=== PATIENT | male | born 1995 | race Hispanic/Latino ===

== ENCOUNTER 2018-07-04 23:30 | Emergency (ER) | payer BC ==
[2018-07-04 23:54] VITALS: RESP 18
--- NOTE | 2018-07-05 00:48 | ED PDOC ---
HPI: Trauma/Fall - HPI Time Seen by Provider: 07/05/18 00:24 Chief Complaint (Nursing): Trauma Chief Complaint (Provider): fall History Per: Patient History/Exam Limitations: intoxication Injury Occurred (Timing): Hours Ago: (2) Additional Complaint(s): 23 y/o male presents for evaluation of fall 2 hours prior to arrival. Patient admits to being highly intoxicated earlier tonight; states he remembers going back to his friends apartment by himself and then his friends telling him he had blood around his mouth. Patient does not remember falling. Patient reports pain to right lower mouth/gum area. Denies headache, dizziness, extremity numbness/weakness, vision changes, neck pain. Past Medical History Reviewed: Historical Data, Nursing Documentation, Vital Signs Vital Signs: Last Vital Signs Temp 98.0 F 07/04/18 23:51 Pulse 91 H 07/04/18 23:51 Resp 18 07/04/18 23:51 BP 154/87 H 07/04/18 23:51 Pulse Ox 100 07/04/18 23:51 - Medical History PMH: No Chronic Diseases - Surgical History Surgical History: No Surg Hx - Family History Family History: States: No Known Family Hx - Living Arrangements Living Arrangements: With Family - Allergies Allergies/Adverse Reactions: Allergies Allergy/AdvReac Type Severity Reaction Status Date / Time No Known Allergies Allergy Verified 07/04/18 23:51 Review of Systems ROS Statement: Except As Marked, All Systems Reviewed And Found Negative ENT: Positive for: Mouth Pain Physical Exam - Reviewed Nursing Documentation Reviewed: Yes Vital Signs Reviewed: Yes - Physical Exam Appears: Positive for: Well, Non-toxic, No Acute Distress Head Exam: Positive for: ATRAUMATIC, NORMAL INSPECTION, NORMOCEPHALIC Eye Exam: Positive for: EOMI, PERRL ENT: Positive for: Other (linear crack/laceration extending from gingiva up to gum line between right lower lateral incisor and canine; canine slightly loose. No dental fractures, active bleeding noted. Airway patent. No TMJ tenderness. Opening/closing mouth without pain/difficulty) Cardiovascular/Chest: Positive for: Regular Rate, Rhythm Respiratory: Positive for: Normal Breath Sounds Gastrointestinal/Abdominal: Positive for: Normal Exam Back: Positive for: Normal Inspection Extremity: Positive for: Normal ROM Neurologic/Psych: Positive for: Alert, Oriented (x3) - ECG O2 Sat by Pulse Oximetry: 100 - Progress ED Course And Treament: -CT head -CT facial bones -Tylenol PO CT of the facial bones without contrast Clinical history: Pain, injury. Technique: Multiple axial CT images were obtained through the facial bones and paranasal sinuses utilizing 3 mm axial slices without administration of contrast. Coronal and sagittal reconstructions were also obtained. DLP 1736.7 Findings: The visualized paranasal sinuses are clear, other than a mucus retention cyst in the right maxillary sinus. The osteomeatal complexes are patent bilaterally. The nasal septum is midline. The visualized mastoid air cells are clear. There is an acute nondisplaced fracture of the right anterior mandible. There is an acute oblique fracture of the angle of the left mandible, with medial displacement noted. The temporomandibular joint appears to be intact. The superficial soft tissues are within normal limits. Impression: 1. Acute, medially displaced fracture of the angle of the left mandible. Temporomandibular joint is intact. 2. Acute nondisplaced fracture of the right anterior mandible. 3. Mucus retention cyst in the right maxillary sinus EXAM: CT Head without Intravenous Contrast. CLINICAL HISTORY: Etoh trauma, pt cannot recall what happened TECHNIQUE: Axial computed tomography images of the head/brain without intravenous contrast. 885.29 mGy-cm COMPARISON: None provided. FINDINGS: BRAIN No acute intraparenchymal hemorrhage. No mass lesion. No CT evidence for acute territorial infarct. No midline shift or extra-axial collections. VENTRICLES: No hydrocephalus. ORBITS: The orbits are unremarkable. SINUSES AND MASTOIDS: The paranasal sinuses and mastoid air cells are clear. BONES: No fracture. SOFT TISSUES: Unremarkable. IMPRESSION: No acute intracranial abnormality. -Oxycodone PO Case discussed with Dr. Reveles, OMFS at [facility], will require ED to ED transfer for consult Accepted by Dr. Calloway, ED attending at [facility]. Arrangements made for transfer Disposition - Clinical Impression Clinical Impression: Bilateral mandibular fracture - Disposition Disposition: Other Institution ([facility]) Disposition Time: 02:51 Condition: FAIR Forms: [employer] (Maltese)
[2018-07-05] MEDS ORDERED: oxyCODONE 5 mg Immediate Release Tab PO STA (02:27)
[2018-07-05 08:42] VITALS: BP 133/78; PULSE 81; TEMP 98.2; O2SAT 99
--- NOTE | 2018-07-05 09:19 | CT ---
Date of service: 07/05/2018 PROCEDURE: CT MAXILLOFACIAL BONES WITHOUT CONTRAST HISTORY: etoh, head injury COMPARISON: None available. TECHNIQUE: Contiguous axial CT images of the maxillofacial bones were obtained. Coronal and sagittal reformats were generated. Radiation dose: Total exam DLP = 1736.77 mGy-cm. This CT exam was performed using one or more of the following dose reduction techniques: Automated exposure control, adjustment of the mA and/or kV according to patient size, and/or use of iterative reconstruction technique. FINDINGS: NASAL BONES: Unremarkable. ORBITS: Unremarkable. PARANASAL SINUSES/ MASTOIDS: Right maxillary sinus retention cyst/polyp. MAXILLA: Unremarkable. MANDIBLE/ TEMPOROMANDIBULAR JOINTS: Acute medially displaced fracture of the left mandibular angle as well as an acute nondisplaced fracture of the right anterior mandible. SKULL BASE: Unremarkable. TEMPORAL BONES: Middle ears and mastoid grossly unremarkable. OTHER FINDINGS: None. IMPRESSION: Acute medially displaced fracture of the left mandibular angle as well as an acute nondisplaced fracture of the right anterior mandible.
--- NOTE | 2018-07-05 09:19 | CT ---
Date of service: 07/05/2018 PROCEDURE: CT HEAD WITHOUT CONTRAST. HISTORY: etoh, head injury COMPARISON: None available. TECHNIQUE: Axial computed tomography images were obtained through the head/brain without intravenous contrast. Radiation dose: Total exam DLP = 0.0 mGy-cm. This CT exam was performed using one or more of the following dose reduction techniques: Automated exposure control, adjustment of the mA and/or kV according to patient size, and/or use of iterative reconstruction technique. FINDINGS: HEMORRHAGE: No intracranial hemorrhage. BRAIN: No mass effect or edema. No atrophy or chronic microvascular ischemic changes. VENTRICLES: Unremarkable. No hydrocephalus. CALVARIUM: Unremarkable. PARANASAL SINUSES: Unremarkable as visualized. No significant inflammatory changes. MASTOID AIR CELLS: Unremarkable as visualized. No inflammatory changes. OTHER FINDINGS: None. IMPRESSION: Normal CT of the Head.
== END 2018-07-05 04:45 | disposition short-term general hospital (02) ==
LOC: H.ER 23:30
DX: S02.609A Fracture of mandible, unspecified, initial encounter for closed fracture (principal); S06.9X0A Unspecified intracranial injury without loss of consciousness, initial encounter; W19.XXXA Unspecified fall, initial encounter